=== PATIENT | male | born 1945 | race Caucasian/White ===

== ENCOUNTER 2020-10-11 09:43 | Emergency (ER) | payer OTHER, MEDICARE, SELFPAY ==
[2020-10-11 09:45] VITALS: BP 130/93; PULSE 81; RESP 16; TEMP 36.3; O2SAT 98; BMI 40.1
--- NOTE | 2020-10-11 10:19 | CT_ITS ---
HISTORY: headache. TECHNIQUE: Multiple axial images were obtained of the brain without intravenous contrast. A radiation dose optimization technique was used for this scan. # of images incl. paperwork: 279. COMPARISON: None. FINDINGS: BRAIN PARENCHYMA:Chronic lacunar infarct in the left basal ganglia. Multiple small foci and zones of low attenuation in the cerebral white matter most compatible with chronic small vessel ischemic gliosis. INTRACRANIAL HEMORRHAGE: No acute intracranial hemorrhage. CSF SPACES/MASS EFFECT: Nirav cisterna magna incidentally noted. Diffuse atrophy with compensatory ventricular enlargement. No midline shift or other significant mass effect. ORBITS: Bilateral lens resections. CALVARIUM: Intact. PARANASAL SINUSES AND MASTOID AIR CELLS: Mild sphenoid sinus mucosal thickening. CT/Brain/Head without Contrast IMPRESSION: No acute intracranial process identified. Chronic small vessel ischemic gliosis. Individualized dose optimization techniques were used for this CT. at 1103 Reported and signed by: Danielle Gonzalez MD Electronically Signed: Danielle Gonzalez MD at 11:02 EDT Tel , Service support ,
--- NOTE | 2020-10-11 10:20 | EKG12_ITS ---
Test Reason : DYSRYTHMIA Blood Pressure : / mmHG Vent. Rate : 081 BPM Atrial Rate : 394 BPM P-R Int : 000 ms QRS Dur : 138 ms QT Int : 436 ms P-R-T Axes : 000 -63 019 degrees QTc Int : 506 ms Atrial fibrillation Right bundle branch block Left anterior fascicular block Bifascicular block Abnormal ECG Confirmed by JAEL ESTRADA, OUMAR ([id number]), newspaper editor managing [employer] ([id number]) on 10/13/2020 9:57:45 AM Referred By: TATY Confirmed By:OUMAR ELDER MD
--- NOTE | 2020-10-11 10:23 | CT_ITS ---
HISTORY: Cervical radiculopathy. TECHNIQUE: Helically acquired images were obtained of the cervical spine. 2D reformatted images were reviewed. A radiation dose optimization technique was used for this scan. # of images incl. paperwork: 444. IV Contrast dosage and agent: None. COMPARISON: None. FINDINGS: VERTEBRAE: No acute fracture identified. VERTEBRAL ALIGNMENT: No significant anterior or posterior subluxation. Straightening of the cervical lordosis. DISCS: Degenerative discogenic changes. Posterior disc bulge osteophyte complexes with uncovertebral and facet arthropathy. C2-3: Moderate central canal stenosis. C3-4: Severe central canal stenosis. C4-5, C5-6: Mild narrowing of the thecal sac. Foraminal narrowing at multiple levels. SOFT TISSUES: No prevertebral soft tissue swelling. Mild dependent atelectasis in the right lung. CT/Spine Cervical without Contras IMPRESSION: No evidence of acute cervical spinal fracture or dislocation. Multilevel degenerative disc disease as described above. Individualized dose optimization techniques were used for this CT. at 1130 Reported and signed by: Danielle Gonzalez MD Electronically Signed: Danielle Gonzalez MD at 11:29 EDT Tel , Service support ,
--- NOTE | 2020-10-11 10:28 | EX.ED.DYSGE1 ---
HPI History of Present Illness Chief Complaint: Dizziness Informant: patient Onset/Context/Timing Onset: Yesterday Context: Gradual Onset Timing: Waxes and wanes Quality: Off balance Location: Generalized Worsened by: Movement, standing Relieved by: Nothing Narrative Narrative: Patient presents with dizziness that began yesterday. Patient states he feels off balance. Patient states is worse with certain movements and with standing. Patient states it is intermittent. Patient also admits to some intermittent numbness and tingling down his left arm that he has had for 2 to 3 months. Patient states he was told that it was a pinched nerve but never had any evaluation for it. Patient admits to some nausea but denies any vomiting. Patient also admits to mild sore throat. Patient denies any headaches. Patient denies any visual changes. Patient denies any hearing changes. Patient denies any tinnitus. [facility] Medical History (Updated 10/11/20 @ 13:[address] Kali Pimentel DO) Diabetes Neuropathy Allergy/AdvReac Type Severity Reaction Status Date / Time oxybutynin Allergy Other Verified 10/11/20 10:27 Sulfa (Sulfonamide Allergy Other Verified 10/11/20 10:27 Antibiotics) Surgical History History of herniorrhaphy Social History Smoking Status: Former smoker ROS ROS ED Constitutional Constitutional ED: Denies chills or fever(s) Eyes Eyes: Denies blurry vision or change in vision ENT ENT ED: Reports sore throat; Denies rhinorrhea Cardiovascular Cardiovascular: Denies chest pain or palpitations Respiratory/Chest Respiratory/Chest: Denies cough or dyspnea Gastrointestinal Gastrointestinal: Reports nausea; Denies vomiting Genitourinary Genitourinary ED: Denies dysuria or hematuria Musculoskeletal Musculoskeletal: Reports neck pain; Denies back pain Integumentary Denies abscess or rash Neurologic Neurologic: Reports paresthesias LUE; Denies headache(s) or weakness Allergic/Immunologic Allergic/Immunologic ED: Denies mouth swelling or urticaria EXAM Physical Exam Const Vital Signs: 10/11/20 09:45 10/11/20 10:33 10/11/20 11:55 Temperature 97.4 F L Temperature Source Temporal Pulse Rate 81 Pulse Rate [Lying] 77 Pulse Rate [Sitting] 76 Pulse Rate [Standing] 88 Respiratory Rate 16 Respiratory Effort Normal Non-Labored Respiratory Pattern Normal Blood Pressure 130/93 H Blood Pressure [Lying] 117/69 Blood Pressure [Sitting] 117/78 Blood Pressure [Standing] 118/90 H Blood Pressure Mean 105 Blood Pressure Mean [Lying] 85 Blood Pressure Mean [Sitting] 91 Blood Pressure Mean [Standing] 99 Pulse Ox 98 Oxygen Delivery Method Room Air 10/11/20 12:00 Temperature Temperature Source Pulse Rate 81 Pulse Rate [Lying] Pulse Rate [Sitting] Pulse Rate [Standing] Respiratory Rate 18 Respiratory Effort Respiratory Pattern Blood Pressure 118/90 H Blood Pressure [Lying] Blood Pressure [Sitting] Blood Pressure [Standing] Blood Pressure Mean 99 Blood Pressure Mean [Lying] Blood Pressure Mean [Sitting] Blood Pressure Mean [Standing] Pulse Ox 96 Oxygen Delivery Method Room Air Positive well nourished and well developed General Appearance ED: well developed HEENT Reports moist mucous membranes Neck supple and no JVD Resp normal respiratory effort and clear to auscultation bilaterally Cardio regular rate and no murmurs Rhythm: abnormal rhythm irregularly irregular GI normal to inspection, nondistended, normoactive bowel sounds and non-tender Palpation: soft Extremity normal to inspection General Extremety ED: Negative for edema or tenderness General Extremity: Negative for edema Neuro oriented x3, CN's II-XII intact bilaterally and no sensory deficits noted Sensorium / Orientation: alert Psych mental status grossly normal Skin no rashes or lesions noted MDM MDM MDM Narrative Medical decision making narrative: EKG was obtained. On my interpretation, there is atrial fibrillation with a rate of 81. There is a right bundle branch block. There is a left anterior fascicular block. There are no prior EKGs available for comparison. CBC shows a mild anemia with a hemoglobin of 12.7 and hematocrit 39.5. Comprehensive metabolic profile showed glucose of 187 but was otherwise within normal limits. High-sensitivity troponin was 11.9. Repeat troponin 2 hours later was 12.1. Portable chest x-ray was obtained. There is 1 view. On my interpretation, there is mild vascular congestion. There is bibasilar atelectasis. There is no cardiomegaly. Bony thorax is normal. There is no acute process. Radiologist also interpreted the x-ray and agrees. CT scan of the brain was obtained. There are chronic changes. There is no acute bleed or infarct. This was interpreted by the radiologist and reviewed by myself. CT scan of the cervical spine was obtained. There is degenerative disc disease noted. There is no acute process noted. This was interpreted by the radiologist and reviewed by myself.Orthostatic vital signs were obtained were within normal limits. Orthostatic vital signs were obtained and were within normal limits. Patient feels better and wants to go home. Patient was given a dose of meclizine here. Patient was given a prescription for meclizine. Patient was instructed to follow-up with his primary care physician in 5 to 7 days. Patient understood and was agreeable with the plan. All questions were answered. Lab Data Attestation: I reviewed the patient's lab results. Labs: Laboratory Results - last 24 hr 10/11/20 10/11/20 10/11/20 10:35 10:35 10:35 WBC 7.2 RBC 4.21 L Hgb 12.7 L Hct 39.5 L MCV 93.8 MCH 30.2 MCHC 32.2 RDW Std Deviation 48.2 H RDW Coeff of Ramez 14.2 Plt Count 110 L MPV 10.5 Immature Gran % (Auto) 0.600 Neut % (Auto) 75.0 H Lymph % (Auto) 16.9 L Calhoun % (Auto) 5.0 Eos % (Auto) 1.9 Baso % (Auto) 0.6 Absolute Neuts (auto) 5.4 Absolute Lymphs (auto) 1.22 Nucleated RBC % 0 Sodium 139 Potassium 4.4 Chloride 105 Carbon Dioxide 31.0 Anion Gap 3 L BUN 12 Creatinine 0.90 Estim Creat Clear Calc 87.07 Est GFR (MDRD) Af Amer 106 Est GFR (MDRD) Non-Af 87 BUN/Creatinine Ratio 13.3 Glucose 187 H Calcium 8.6 Total Bilirubin 0.60 AST 18 ALT 30 Alkaline Phosphatase 60 Troponin I High Sens 11.9 B-Natriuretic Peptide 138.3 H Total Protein 6.4 Albumin 3.4 Globulin 3.0 Albumin/Globulin Ratio 1.1 10/11/20 12:33 WBC RBC Hgb Hct MCV MCH MCHC RDW Std Deviation RDW Coeff of Ramez Plt Count MPV Immature Gran % (Auto) Neut % (Auto) Lymph % (Auto) Calhoun % (Auto) Eos % (Auto) Baso % (Auto) Absolute Neuts (auto) Absolute Lymphs (auto) Nucleated RBC % Sodium Potassium Chloride Carbon Dioxide Anion Gap BUN Creatinine Estim Creat Clear Calc Est GFR (MDRD) Af Amer Est GFR (MDRD) Non-Af BUN/Creatinine Ratio Glucose Calcium Total Bilirubin AST ALT Alkaline Phosphatase Troponin I High Sens 12.1 B-Natriuretic Peptide Total Protein Albumin Globulin Albumin/Globulin Ratio Radiography Chest X-Ray - ED: 1 View, Read by ED Physician, Read by Radiologist and No Acute Disease Diagnostic Testing: Radiology Impression Brain CT 10/11/20 10:19 IMPRESSION: No acute intracranial process identified. Chronic small vessel ischemic gliosis. Individualized dose optimization techniques were used for this CT. at 1103 Reported and signed by: Danielle Gonzalez MD Electronically Signed: Danielle Gonzalez MD at 11:02 EDT Tel , Service support , Cervical Spine CT 10/11/20 10:23 IMPRESSION: No evidence of acute cervical spinal fracture or dislocation. Multilevel degenerative disc disease as described above. Individualized dose optimization techniques were used for this CT. at 1130 Reported and signed by: Danielle Gonzalez MD Electronically Signed: Danielle Gonzalez MD at 11:29 EDT Tel , Service support , Chest X-Ray 10/11/20 10:46 IMPRESSION: Mild pulmonary vascular congestion and bibasilar atelectasis. at 1104 Reported and signed by: Danielle Gonzalez MD Electronically Signed: Danielle Gonzalez MD at 11:03 EDT Tel , Service support , EKG Initial EKG: Attestation: I personally reviewed and interpreted this EKG as follows: Interpretation: No Acute Injury Pattern, Atrial Fibrillation, RBBB and LAFB Prior EKG tracings: not available for review Discharge Plan Triage Chief Complaint: Dizziness ED Provider: Kali Pimentel Dx/Rx/DC Orders Clinical Impression: Vertigo Instructions: ED Vertigo, Unspecified [facility] [facility] [facility] [Primary Care Provider] - 3-5 Days Disposition Disposition: Home, Self Care
--- NOTE | 2020-10-11 10:46 | RAD_ITS ---
HISTORY: Chest pain. TECHNIQUE: XR Chest 1 View. # of images incl. paperwork: 1. COMPARISON: None. FINDINGS: CARDIOMEDIASTINAL STRUCTURES: Cardiac silhouette mildly enlarged. Tortuous aorta. LUNGS: Mild pulmonary vascular congestion and mild linear bibasilar opacities. PLEURA: No pleural effusion or pneumothorax. OSSEOUS STRUCTURES: Degenerative change. RAD/Chest 1 View (Portable) IMPRESSION: Mild pulmonary vascular congestion and bibasilar atelectasis. at 1104 Reported and signed by: Danielle Gonzalez MD Electronically Signed: Danielle Gonzalez MD at 11:03 EDT Tel , Service support ,
[2020-10-11 10:47] LABS: Absolute Lymphocyte Count 1.22 X10^3/uL (0.83-4.51); Absolute Neutrophil Count 5.4 X10^3/uL (2.0-7.7); Basophil# 0.04 X10^3/uL; Basophil% 0.6 % (0-1); Eosinophil# 0.14 X10^3/uL; Eosinophils% 1.9 % (0-5); Hematocrit 39.5 % (40-54); Hemoglobin 12.7 g/dL (13.0-16.5); Lymphocyte # 1.22 X10^3/ul (0.83-4.51); Lymphocyte % 16.9 % (19-41); Mean Corp Hgb Conc 32.2 g/dL (32-36); Mean Corpuscular Hgb 30.2 pg (27.0-32.0); Mean Corpuscular Volume 93.8 fL (80-94); Mean Platelet Vol. 10.5 fl (6.2-12.0); Monocyte# 0.36 X10^3/uL; NRBC Flagged by Analyzer 0 % (0-5); Neutrophil # 5.44 X10^3/uL (2.7-7.7); Platelet Count 110 K/mm3 (150-450); RBC Distribution Width CV 14.2 % (11.6-14.6); RBC Distribution Width SD 48.2 fl (35.1-43.9); Red Blood Count 4.21 M/mm3 (4.6-6.2); White Blood Count 7.2 K/mm3 (4.4-11.0)
[2020-10-11 11:01] LABS: ALB/GLOB Ratio 1.1 RATIO (0.9-2.4); AST(SGOT) 18 U/L (15-37); Alanine Aminotransfer ALT/SGPT 30 U/L (16-61); Albumin, Serum 3.4 g/dL (3.2-5.0); Alkaline Phosphatase 60 U/L (45-117); Anion Gap 3 (5-15); BUN 12 mg/dL (7-18); BUN/Creat Ratio 13.3 RATIO (10-20); Calcium,Total 8.6 mg/dL (8.5-10.1); Chloride 105 mmol/L (98-107); EST Glomerular Filtration Rate 87 mL/min (>60); Est Glom Filt Rate - Afr Amer 106 mL/min (>60); Estimated Creatinine Clearance 87.07 ml/min; Glucose 187 mg/dL (74-106); Potassium 4.4 mmol/L (3.5-5.1); Protein, Total 6.4 g/dL (6.4-8.2); Sodium Level 139 mmol/L (136-145); Troponin-I HS 11.9 pg/mL (3.0-78.5)
[2020-10-11 11:55] VITALS: BP 117/69; BP 117/78; BP 118/90; PULSE 76; PULSE 77; PULSE 88
[2020-10-11 12:00] VITALS: BP 118/90; PULSE 81; RESP 18; O2SAT 96
[2020-10-11 12:23] LABS: BNP,B-Type NATRIURETIC PEPTIDE 138.3 pg/mL (0-100)
[2020-10-11 13:09] LABS: Troponin-I HS 12.1 pg/mL (3.0-78.5)
[2020-10-11] MEDS: Meclizine HCl 25 MG Tablet PO (13:53)
[2020-10-11 14:13] VITALS: BP 116/73; PULSE 65; RESP 22; O2SAT 95
== END 2020-10-11 14:15 | disposition home or self-care (01) ==
PROVIDERS: Emergency Provider Emergency Medicine
DX: R42 Dizziness and giddiness (principal); M50.30 Other cervical disc degeneration, unspecified cervical region; I48.91 Unspecified atrial fibrillation; E11.40 Type 2 diabetes mellitus with diabetic neuropathy, unspecified; J02.9 Acute pharyngitis, unspecified; R11.0 Nausea; Z87.891 Personal history of nicotine dependence
CPT/HCPCS: 70450; 71045; 72125; 80053; 83880; 84484; 85025; 93005; 99285; A4216

== ENCOUNTER 2021-12-27 09:30 | Outpatient (RCR) | payer OTHER, MEDICARE, SELFPAY ==
--- NOTE | 2021-10-31 13:12 | HP.PTEVAL ---
Patient's Visit Information BHARAT HARRNIGTON is a 76 year old M referred to Physical Therapy by NICOLAS DANIEL with a diagnosis of DM/Obese. Date of Evaluation: 10/31/21 Physical Therapist: JOLLY Gomez - Visit Plan Frequency: 1-2x /Week Duration: 6 Weeks Plan: 1-2X week for 14 additional visits for AT for gait endurance, LE strength, posture, balance with HEP - Subjective Dr wanted cardiac rehab but he feels that he can not do it so they want to try to increase endurance in AT and then possible cardiac rehab due to L heart valve replacement approx [address] that he can not walk that much and so AT it is. Pt uses a scooter all the time even in the house but he does try and walk some. He has diabetic neuropathy of the R leg also. He started using the scooter in 2002. He reports that he can go down steps with 2 rails. Pt has DM neuropathy and back issues and got into [employer] in [employer] and that caused the DM. That put him in the motorized chair. If he walks he feels exhausted when he walks (furniture walks). and he has wall chair rails to walk around the house. He does have a cane, walker, and scooter also. He has a ramp to get up into the house. - Pain back pain Pain Intensity (Out of 10): 0 R leg pain Pain Intensity (Out of 10): 6 - Objective Uses a motorized scooter most of the time. Gait: Walks with a hand on the hallway chair rail and WBQC with CGA 80 feet down the horner and back to his chair. LE MMT: R hip flex 7.7 and L hip flex 9.2#. R knee ext 14.3# and L knee ext 15.8#. R knee flex 11.1# and L knee flex 15.1#. Sit to stand: uses his arms to help get him out of the chair. Goes from scooter to mat table with flexed trunk and uses arms on mat table to get himself to the mat table. Pt was instructed and shown how to tell the front end manager that he is here and go back to the pool/locker room for treatment - Balance/Special Test Scores Lower Extremity Functional Score: 36 - Goals Goal 1:: I HEP Goal Time Frame: 6-8 Weeks Goal 2:: Be able to walk 100 feet with least restrictive device without legs giving out or fatugue Goal Time Frame: 6-8 Weeks Goal 3:: Increase B LE strength (at the time of the eval: LE MMT: R hip flex 7.7 and L hip flex 9.2#. R knee ext 14.3# and L knee ext 15.8#. R knee flex 11.1# and L knee flex 15.1#). Goal Time Frame: 6-8 Weeks Goal 4:: Pt to subjectivly reports that he is able to walk around his house more with more endurance and strength Goal Time Frame: 6-8 Weeks - Rehabilitation Potential Rehabilitation Potential: Good - Anticipated Interventions Patient/Client Instruction: Educate patient on: Condition, Plan of Care For the Purpose of:: To improve muscle performance and motor function, To improve ability to perform ADL's, To increase tolerance to activity/condition/position, To improve performance and independence with ADL's, To decrease level of supervision to perform tasks, To improve ability of physical actions for home/community/work/leisure, To improve gait and locomotor functions, To improve health of tissue, To decrease soft tissue restriction, To increase flexibility/ROM, To improve endurance, To improve balance, To improve safety with gait Therapeutic Exercise to Include: Strength training, Endurance training, Balance training, Postural training, Flexibilty training, Gait and locomotor training For the Purpose of:: To improve ability to perform ADL's, To increase tolerance to activity/condition/position, To improve performance and independence with ADL's, To decrease level of supervision to perform tasks, To improve ability of physical actions for home/community/work/leisure, To improve gait and locomotor functions, To improve health of tissue, To decrease soft tissue restriction, To improve endurance, To improve balance, To improve safety with gait Functional Training to Include: Gait training For the Purpose of:: To improve gait and locomotor functions, To improve safety with gait Thank you for the opportunity to evaluate your patient. For Medicare and Medicare HMO plans, please review the plan of care and approve it. It will need to be FAXED BACK to us at [phone] for Medicare purposes. For Medicare only, by signing this I certify the plan of care. Please let me know if there are questions or concerns regarding this plan of care. Physician Signature: Date:
--- NOTE | 2021-12-12 09:29 | HP.PTREVAL ---
NICOLAS DANIEL, It has been my pleasure to treat BHARAT HARRINGTON over the last 11 visits for DM/Obese. Please see the progress note below for an update on the physical therapy plan of care! Subjective: Pt reports that the pool is great. He reports that his back pain comes and goes. Pt reports that his R leg pain is down to his toes and his pain varies. Pt can say that he is stronger. He reports that the pain is variable. He is able to walk more. Dr wanted him to walk in AT. Pt normally walks around the house with no AD and uses the furniture and if goes outside he takes the cane. He has a ramp at home. Objective/Function: Pt likes the water and needs his scooter per his subjective when he gets out of the water as he is fatigued. Pt is vague with his answers as far as improvement and he reports that his endurance and strength varies. LE MMT: R hip flex 14# and L hip flex 14.4#. R knee ext 11.8# and L knee ext 15.8#. R knee flex 12.7# and L knee flex 15.1#). Gait: walks in dept 148 feet with R leg giving out twice with single point cane and then needed to sit down. Plan Plan: 1-2X week for 14 additional visits for AT for gait endurance, LE strength, posture, balance with HEP Balance/Gait/Functional tests - Balance/Special Test Scores Lower Extremity Functional Score: 35 Goals Goal 1:: I HEP Goal Time Frame: 6-8 Weeks Goal Progress: Progressing Goal 2:: Be able to walk 100 feet with least restrictive device without legs giving out or fatigue Goal Time Frame: 6-8 Weeks Goal Progress: Progressing Goal 3:: Increase B LE strength (at the time of the eval: LE MMT: R hip flex 7.7 and L hip flex 9.2#. R knee ext 14.3# and L knee ext 15.8#. R knee flex 11.1# and L knee flex 15.1#). Goal Time Frame: 6-8 Weeks Goal Progress: Progressing Goal 4:: Pt to subjectivly reports that he is able to walk around his house more with more endurance and strength Goal Time Frame: 6-8 Weeks Goal Progress: Progressing Anticipated Interventions Patient/Client Instruction: Educate patient on: Condition, Plan of Care For the Purpose of:: To improve muscle performance and motor function, To improve ability to perform ADL's, To increase tolerance to activity/condition/position, To improve performance and independence with ADL's, To decrease level of supervision to perform tasks, To improve ability of physical actions for home/community/work/leisure, To improve gait and locomotor functions, To improve health of tissue, To decrease soft tissue restriction, To increase flexibility/ROM, To improve endurance, To improve balance, To improve safety with gait Therapeutic Exercise to Include: Strength training, Endurance training, Balance training, Postural training, Flexibilty training, Gait and locomotor training For the Purpose of:: To improve ability to perform ADL's, To increase tolerance to activity/condition/position, To improve performance and independence with ADL's, To decrease level of supervision to perform tasks, To improve ability of physical actions for home/community/work/leisure, To improve gait and locomotor functions, To improve health of tissue, To decrease soft tissue restriction, To improve endurance, To improve balance, To improve safety with gait Functional Training to Include: Gait training For the Purpose of:: To improve gait and locomotor functions, To improve safety with gait Please do not hesitate to contact me at [phone] by phone or if you have questions or concerns regarding this new plan of care! Sincerely, JOLLY Gomez
--- NOTE | 2021-12-27 10:12 | HP.PTDCSUM_ITS ---
It has been my pleasure to treat BHARAT HARRINGTON referred by NICOLAS DANIEL, with the diagnosis of DM/Obese for a total of 15 visit(s). Discharge Date: 12/27/21 Please see the following information for a summary of their discharge status. Subjective: Pt feels that water therapy has made him 50% better. he reports that he still can not walk well or bend over. He reports that he wants to join through [employer] and come in and do water exercises on his own. back pain Pain Intensity (Out of 10): 3 R leg pain Pain Intensity (Out of 10): 7 % Improvement: 50 Objective/Function: pt plans on joining the gym to do the pool indep once done w/ PT. educated on pool gym hours and the equipment pt can use for his ex program. pt is indep w/ the pool ex program. Goal 1:: I HEP Goal Progress: Progressing Goal 2:: Be able to walk 100 feet with least restrictive device without legs giving out or fatigue Goal Progress: Progressing Goal 3:: Increase B LE strength (at the time of the eval: LE MMT: R hip flex 7.7 and L hip flex 9.2#. R knee ext 14.3# and L knee ext 15.8#. R knee flex 11.1# and L knee flex 15.1#). Goal Progress: Progressing Goal 4:: Pt to subjectivly reports that he is able to walk around his house more with more endurance and strength Goal Progress: Progressing Plan: DC PT to I AT program probably through [employer] Discharge Comments: DC PT to I water program probably through [employer] If there are questions or concerns regarding this patient's physical therapy, please feel free to call me at [phone]. Thank you for the referral of this patient. Sincerely, Shonna Fischer, MPT Balance/Gait/Functional tests - Balance/Special Test Scores Lower Extremity Functional Score: 35
== END 2021-12-27 12:48 | disposition home or self-care (01) ==
LOC: PT 09:30
DX: I35.0 Nonrheumatic aortic (valve) stenosis (principal)
CPT/HCPCS: 97110; 97113; 97162

== ENCOUNTER 2024-04-30 02:59 | Emergency (ER) | payer OTHER, SELFPAY ==
[2024-04-30] VITALS (17 sets, daily range): BP systolic 89–112; BP diastolic 68–81; PULSE 80–117; RESP 16–30; TEMP 36.4–36.6; O2SAT 94–96; BMI 38.7
--- NOTE | 2024-04-30 03:02 | EKG12_ITS ---
Test Reason : CP Blood Pressure : */* mmHG Vent. Rate : 110 BPM Atrial Rate : * BPM P-R Int : * ms QRS Dur : 140 ms QT Int : 348 ms P-R-T Axes : * -78 43 degrees QTcB Int : 470 ms Atrial fibrillation with rapid ventricular response Right bundle branch block Left anterior fascicular block Bifascicular block Abnormal ECG Confirmed by KEYA ESTRADA, MANOLO ([id number]), newspaper editor managing [employer] ([id number]) on 05/04/2024 8:03:17 AM Referred By: MEENA Confirmed By: MANOLO LAURA MD
--- NOTE | 2024-04-30 03:13 | ED.VIS.CHEST ---
HPI History of Present Illness Chief Complaint: Chest Pain Informant: patient and spouse/S.O. Onset/Context/Timing Onset: Days Activity at onset: gradual Timing: Intermittent Quality: Positive for Pain Location: - (Lower sternal chest pain. No radiation.) Current Severity: Gone Maximum Severity: Mild Worsened By: - (Lying supine. Not exertional. No shortness of breath.) Relieved By: Nothing Associated Symptoms: Negative for Nausea, Vomiting, Diaphoresis, Dyspnea, Cough, Fever, Lightheadedness, Acid Reflux or Palpitations Narrative Narrative: 78-year-old male history of diabetes prior cardiac valve surgery and A-fib on Eliquis. States last couple days he has had lower sternal chest discomfort. Not associated with exertion. No associated shortness of breath nor nausea nor diaphoresis. Tonight it occurred around 2 AM. Currently is pain-free. He said it appears to be worse when he lays supine or tries to get comfortable to sleep. He denies any leg pain or swelling. No hemoptysis. No history of DVT or PE. Denies any coronary artery disease or stents. Denies any recent exertional chest pain or exertional dyspnea. Prior Similar Symptoms: No Recent Illness/Hospitalization: No CVD Risk Factors: Positive for Diabetes PE Risk Factors: Negative for Recent Travel/Surgery, Recent Immobilization, Prior DVT or PE, Cancer or OCP + Smoking + >/=35 TAD Risk Factors: Negative for Marfan's Syndrome [facility] Medical History Neuropathy Diabetes Home Medications ?Medication ?Instructions ?Recorded ?Last Taken ?Type potassium chloride 20 mEq 20 meq PO BID 7 days #14 tabs 04/30/24 Unknown Rx tablet,extended release(part/cryst) Allergy/AdvReac Type Severity Reaction Status Date / Time oxybutynin Allergy Other Verified 04/30/24 03:12 Sulfa (Sulfonamide Allergy Other Verified 04/30/24 03:12 Antibiotics) Surgical History History of heart valve replacement History of herniorrhaphy Social History household members: spouse Smoking Status: Former smoker alcohol intake: never ROS ROS ED ROS Narrative Nonexertional chest pain lower sternum that does not migrate. Constitutional Constitutional ED: Denies chills or fever(s) Eyes Eyes: Reports none ENT ENT ED: Denies ear pain Cardiovascular Cardiovascular: Reports as per HPI and chest pain Respiratory/Chest Respiratory/Chest: Denies cough, dyspnea or dyspnea on exertion Gastrointestinal Gastrointestinal: Denies abdominal pain, diarrhea, melena, nausea or vomiting Genitourinary Genitourinary ED: Denies dysuria or hematuria Musculoskeletal Musculoskeletal: Denies arthralgias Integumentary Denies abscess Neurologic Neurologic: Denies headache(s) Psychiatric Psychiatric: Denies anxiety Endocrine Endocrinology: Denies cold intolerance Hematologic/Lymphatic Hematologic/Lymphatic: Denies lymphadenopathy Allergic/Immunologic Allergic/Immunologic ED: Denies mouth swelling, tongue swelling or urticaria EXAM Physical Exam Narrative Exam Narrative: Well-appearing 78-year-old male. Brought in by squad. Sitting upright in bed. No distress. A-fib on the monitor rate around 115. H EENT exam pupils are round reactive light. No facial droop. Neck nontender no JVD. Lungs clear to auscultation bilaterally. Heart A-fib with rapid ventricular rate around 115. No appreciable murmur. Chest wall is nontender. The chest wall appears normal. There is no rash or bruising. There is no reproducible pain or crepitance. Ribs are nontender. Abdomen soft nontender. There is no epigastric pain. No peritoneal signs. He is moving all 4 extremities. There are nontender no edema. Neurologically he is awake and alert. Answering questions following commands. Moving all 4 extremities. present at bedside. Const Vital Signs: 04/30/24 03:00 04/30/24 03:10 04/30/24 03:11 Temperature 97.6 F L Temperature Source Oral Pulse Rate 117 H 108 H Respiratory Rate 16 20 H Blood Pressure 111/77 Blood Pressure Mean 88 Pulse Ox 95 Oxygen Delivery Method Room Air Room Air 04/30/24 03:15 04/30/24 03:30 04/30/24 03:45 Temperature Temperature Source Pulse Rate 116 H 101 H Respiratory Rate 30 H 25 H Blood Pressure 94/71 89/76 L 109/81 H Blood Pressure Mean 76 82 88 Pulse Ox Oxygen Delivery Method 04/30/24 04:00 04/30/24 04:15 04/30/24 04:30 Temperature Temperature Source Pulse Rate 98 107 H Respiratory Rate 26 H 22 H Blood Pressure 97/77 112/77 96/68 Blood Pressure Mean 85 88 78 Pulse Ox Oxygen Delivery Method 04/30/24 04:43 04/30/24 04:45 04/30/24 04:48 Temperature Temperature Source Pulse Rate 99 96 101 H Respiratory Rate 24 H 18 24 H Blood Pressure 96/76 96/76 Blood Pressure Mean 84 82 Pulse Ox 94 Oxygen Delivery Method Room Air 04/30/24 05:00 04/30/24 05:15 04/30/24 05:30 Temperature Temperature Source Pulse Rate 102 H 97 94 Respiratory Rate 25 H 25 H 26 H Blood Pressure 101/75 104/74 Blood Pressure Mean 84 84 Pulse Ox Oxygen Delivery Method 04/30/24 05:45 04/30/24 06:00 Temperature Temperature Source Pulse Rate 91 80 Respiratory Rate 24 H 24 H Blood Pressure 109/71 Blood Pressure Mean 84 Pulse Ox Oxygen Delivery Method Positive well nourished and well developed; Negative for cachectic, contractures or unkempt General Appearance ED: well developed and NAD; Negative for unkempt, cachectic, contractures or pallor Nutritional Appearance: Negative for cachectic HEENT Reports moist mucous membranes normocephalic and atraumatic Eyes PERRL and EOMs intact bilaterally Neck no lymphadenopathy, supple and no JVD General: Negative for tenderness Chest Wall inspection of chest normal and palpation of chest normal Chest: Negative for tenderness Resp normal respiratory effort and clear to auscultation bilaterally Cardio Rate: tachycardic Rhythm: abnormal rhythm irregularly irregular and other (A-fib rate about 115.) Peripheral Pulses: pulses 2+ throughout GI normal to inspection, nondistended, normoactive bowel sounds, soft to palpation, non-tender, non-distended and no masses Back/Spine no CVA tenderness and no thoracic nor lumbar tenderness Extremity normal to inspection General Extremety ED: Negative for edema or pulses abnormal General Extremity: Negative for edema or pulses abnormal Neuro oriented x3 and CN's II-XII intact bilaterally Sensorium / Orientation: awake, alert, oriented to person, oriented to place and oriented to time; Negative for confused or lethargic Motor Exam: strength 5/5 throughout Psych mental status grossly normal Appearance: Negative for unkempt Attitude: No agitated Mood & Affect: Negative for depressed, anxious or tearful Skin no rashes or lesions noted and no wounds General Skin Exam: Negative for jaundice or pallor Rashes: No rashes noted Trauma: Negative for abrasion or laceration Heart Score History: Slightly/Non-Suspicious ECG: Normal (A-fib.) Age: >/= 65 years Risk Factors: 1 or 2 Risk Factors Troponin: </= Normal Limit Score: 3 MDM MDM MDM Narrative Medical decision making narrative: 78-year-old male with nonreproducible midsternal nonradiating chest pain. No shortness of breath nor diaphoresis. Nonexertional pain. Undergo cardiac workup. Repeat exam patient doing well at 4:27 AM. He will be given oral potassium for his potassium of 2.8. We are awaiting a 2-hour troponin. He will also be given medication to slow down his A-fib. Repeat exam patient is doing well around 6 AM. Heart rates in the 90s. His pressures improved to approximately 109/71. Both troponins were normal. This was atypical nonexertional chest pain. Does not appear to be cardiac. He is comfortable being [facility] History & Record Review Discussion w/independent historian: Patient and Family Additional record(s) reviewed:: Prior inpatient record, Prior outpatient record, Prior ED visit and Prior labs Lab Data Attestation: I reviewed the patient's lab results. Lab results narrative: CBC shows a normal white count of 9. H&H 13 and 40. Platelets are low at 90. Previously 110. Chemistries show potassium of 2.8. 11. Normal BUN of 12 creatinine 0.9. Glucose 195. Initial troponin 17. 2-hour troponin is 16. Chest x-ray shows chronic changes no acute process. Labs: Laboratory Results - last 24 hr 04/30/24 04/30/24 02:47 05:08 WBC 9.6 RBC 4.41 L Hgb 13.8 Hct 40.4 MCV 91.6 MCH 31.3 MCHC 34.2 RDW Std Deviation 47.0 H RDW Coeff of Ramez 14.0 Plt Count 90 L MPV 11.1 Immature Gran % (Auto) 0.600 Neut % (Auto) 77.4 H Lymph % (Auto) 12.1 L [place] % (Auto) 8.3 Eos % (Auto) 1.0 Baso % (Auto) 0.6 Absolute Neuts (auto) 7.4 Absolute Lymphs (auto) 1.16 Nucleated RBC % 0 Differential Comment SCANNED Platelet Estimate SLT DEC Sodium 142 Potassium 2.8 L Chloride 103 Carbon Dioxide 29.0 Anion Gap 11 BUN 12 Creatinine 0.97 Estim Creat Clear Calc 89.80 Est GFR (MDRD) Af Amer 96 Est GFR (MDRD) Non-Af 79 BUN/Creatinine Ratio 12.3 Glucose 195 H Calcium 8.6 Troponin I High Sens 17 16 Radiography Chest X-Ray - ED: 1 View, Read by ED Physician, Normal, Heart, Lungs, Mediastinum, Bony Structures, No Acute Disease and Chronic Changes Diagnostic Testing: Clinical Impression(s) from Imaging Studies Chest X-Ray 04/30/24 03:20 IMPRESSION: 1. No acute cardiopulmonary process identified. 2. Chronic changes, as above Reading Location: [facility] Chest x-ray, portable, single view interpreted by myself shows normal cardiac silhouette. Normal mediastinum and aortic knob. Normal lung mckoy. Chronic changes. No acute process. Rhythm Strip Rhythm Strip: A-fib Rate: 110 Ectopy: None EKG Initial EKG: Attestation: I personally reviewed and interpreted this EKG as follows: Interpretation: Atrial Fibrillation Comments: A-fib with RVR rate 110s. Right bundle branch block. Left anterior fascicular block. Discharge Plan Triage Chief Complaint: Chest Pain ED Provider: Bertram Serrano Dx/Rx/DC Orders Clinical Impression: Chest pain, History of diabetes mellitus, History of atrial fibrillation, Chronic anticoagulation, Acute hypokalemia Instructions: Hypokalemia Dc, ED Chest Pain, Uncertain Cause Prescriptions: New potassium chloride 20 mEq tablet,ER particles/crystals 20 meq PO BID 7 Days Qty: 14 0RF [facility]errals: [facility] [Primary Care Provider] - 3-5 Days Activity Restrictions/Additional Instructions: Continue your regular medications. Your potassium was low. I wrote you for Odilia take 1 pill twice a day for the next week that should bring up your potassium. Follow-up with your [place] doctor. Return if feeling worse. Print Language: Uzbek Disposition Disposition: Home, Self Care
[2024-04-30] MEDS: Aspirin 81 MG TAB.CHEW 324 MG PO (03:15)
--- NOTE | 2024-04-30 03:20 | RAD_ITS ---
PROCEDURE: CHEST 1 VIEW (PORTABLE) REASON FOR EXAM: Chest pain. TECHNIQUE: AP portable view of the chest. COMPARISON: 10/11/2020 FINDINGS: Lungs are well aerated. Minimal atelectasis and/or scarring within the lung bases. No focal airspace consolidation, pneumothorax or pleural effusion is seen. Remaining lung markings otherwise appears clear. Heart size is within normal limits. Tortuosity involving the thoracic aorta. Osseous thorax appears intact. Spondylotic change involving the thoracic spine. EKG wires overlie the chest. RAD/Chest 1 View (Portable) IMPRESSION: 1. No acute cardiopulmonary process identified. 2. Chronic changes, as above Reading Location: [facility]
[2024-04-30 03:24] LABS: Absolute Lymphocyte Count 1.16 X10^3/uL (0.83-4.51); Absolute Neutrophil Count 7.4 X10^3/uL (2.0-7.7); Basophil# 0.06 X10^3/uL; Basophil% 0.6 % (0-1); Hematocrit 40.4 % (40-54); Hemoglobin 13.8 g/dL (13.0-16.5); Lymphocyte # 1.16 X10^3/ul (0.83-4.51); Lymphocyte % 12.1 % (19-41); Mean Corp Hgb Conc 34.2 g/dL (32-36); Mean Corpuscular Hgb 31.3 pg (27.0-32.0); Mean Corpuscular Volume 91.6 fL (80-94); Mean Platelet Vol. 11.1 fl (6.2-12.0); Monocyte# 0.79 X10^3/uL; Monocyte% 8.3 % (0-10); NRBC Flagged by Analyzer 0 % (0-5); Neutrophil # 7.39 X10^3/uL (2.7-7.7); Neutrophil % 77.4 % (47-70); POSITIVE COUNT YES; Platelet Count 90 K/mm3 (150-450); Red Blood Count 4.41 M/mm3 (4.6-6.2); White Blood Count 9.6 K/mm3 (4.4-11.0)
[2024-04-30 03:29] LABS: Differential Indicated SCAN CRITERIA MET
[2024-04-30 04:03] LABS: Anion Gap 11 (5-15); BUN 12 mg/dL (7-18); BUN/Creat Ratio 12.3 RATIO (10-20); Calcium,Total 8.6 mg/dL (8.5-10.1); Chloride 103 mmol/L (98-107); Creatinine, Serum 0.97 mg/dL (0.70-1.30); EST Glomerular Filtration Rate 79 mL/min (>60); Est Glom Filt Rate - Afr Amer 96 mL/min (>60); Glucose 195 mg/dL (74-106); Potassium 2.8 mmol/L (3.5-5.1); Sodium Level 142 mmol/L (136-145); Troponin-I HS (w/2H Reflex) 17 pg/mL (3.0-78.0)
[2024-04-30] MEDS: dilTIAZem 25 MG/5 ML Vial 20 MG IV BOLUS (04:45)
[2024-04-30] MEDS: Potassium Chloride Oral Tablet 20 MEQ 60 MEQ PO (04:51)
[2024-04-30 04:52] LABS: Differential Comment SCANNED; Platelet Estimate SLT DEC (ADEQ)
[2024-04-30 05:12] LABS: Reflex Troponin-HS? (from REC) Y
[2024-04-30 06:08] LABS: Troponin-I HS 16 pg/mL (3.0-78.0)
== END 2024-04-30 06:22 | disposition home or self-care (01) ==
PROVIDERS: Emergency Provider Emergency Medicine; Visit Provider Emergency Medicine
DX: R07.89 Other chest pain (principal); I48.91 Unspecified atrial fibrillation; E11.40 Type 2 diabetes mellitus with diabetic neuropathy, unspecified; E87.6 Hypokalemia; Z79.01 Long term (current) use of anticoagulants; Z87.891 Personal history of nicotine dependence
CPT/HCPCS: 71045; 80048; 84484; 85025; 93005; 96374; 99285; A4216

== ENCOUNTER 2024-12-02 17:21 | Emergency (ER) | payer OTHER, SELFPAY ==
[2024-12-02] VITALS (19 sets, daily range): BP systolic 109–178; BP diastolic 77–147; PULSE 46–123; RESP 10–100; TEMP 36.6–36.7; O2SAT 16–100; BMI 32.8
--- NOTE | 2024-12-02 17:22 | EKG12_ITS ---
Test Reason : STROKE Blood Pressure : */* mmHG Vent. Rate : 101 BPM Atrial Rate : * BPM P-R Int : * ms QRS Dur : 132 ms QT Int : 396 ms P-R-T Axes : * -72 71 degrees QTcB Int : 513 ms Atrial fibrillation with rapid ventricular response Right bundle branch block Left anterior fascicular block Bifascicular block Abnormal ECG Confirmed by YISEL ESTRADA, DEYA ([id number]), managing editor DEMETRICE SARABIA ([id number]) on 12/04/2024 10:36:07 AM Referred By: JARROD Confirmed By: DEYA MORILLO MD
--- NOTE | 2024-12-02 17:22 | CT_ITS ---
PROCEDURE: STROKE BRAIN/HEAD WITHOUT CONT 12/02/2024 REASON FOR EXAM: NEURO DEFICIT, ACUTE, STROKE SUSPECTED TECHNIQUE: Procedure Code: CTBR.ST Modality: CT Procedure: STROKE BRAIN/HEAD WITHOUT CONT Coronal and Sagittal reconstruction series were provided. One or more dose reduction techniques were used (e.g., Automated exposure control, adjustment of the mA and/or kV according to patient size, use of iterative reconstruction technique. RADIATION DOSE SUMMARY: CTDlvol: 44.99 mGy DLP: 880.47 mGycm COMPARISON: CT head 10/11/2020. FINDINGS: Brain: Low density in the periventricular white matter suggests mild chronic small vessel ischemic changes. 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 No acute territorial vascular infarction. Nirav cisterna magna. No ventriculomegaly. The orbits are unremarkable except for cataract surgery. CSF Spaces: Advanced generalized cerebral atrophy Sinuses/Mastoids: Clear. Bones: No acute bony abnormalities. CT/STROKE Brain/Head without Cont IMPRESSION: No acute intracranial abnormalities. Reading Location: [id number]
--- NOTE | 2024-12-02 17:29 | CT_ITS ---
PROCEDURE: STROKE CTA HEAD AND NECK W/CON 12/02/2024 REASON FOR EXAM: NEURO DEFICIT, ACUTE, STROKE SUSPECTED TECHNIQUE: Procedure Code: CTCTA.ST.HN Modality: CT Procedure: STROKE CTA HEAD AND NECK W/CON Multiplanar Sagittal and Coronal images were obtained. 3D post processing was performed. CONTRAST: Isovue 370 VOLUME: 100 mL One or more dose reduction techniques were used (e.g., Automated exposure control, adjustment of the mA and/or kV according to patient size, use of iterative reconstruction technique). RADIATION DOSE SUMMARY: DLP: 857.69 mGycm COMPARISON: None. FINDINGS: CTA HEAD: Patent intracranial arterial vasculature. No large vessel occlusion, significant flow-limiting stenosis, saccular aneurysm, or vascular malformation identified. Dural venous sinuses appear patent. CTA NECK: Conventional aortic arch branching. Bilateral cervical carotid and vertebral arteries are patent. Mild atherosclerotic plaque at the carotid bifurcations with no significant luminal narrowing on either side. No aneurysm or dissection. Diffuse tortuosity of the cervical vessels suggesting chronic hypertension. Dominant left vertebral artery supplies the basilar. Diffusely hypoplastic nondominant right vertebral artery terminates distally at PICA branches. CT/STROKE CTA Head AND Neck W/Con IMPRESSION: Patent intracranial and cervical arterial vasculature. No large vessel occlusion or significant flow-limiting stenosis. Reading Location: [facility]
--- NOTE | 2024-12-02 17:36 | EDS_ITS ---
HPI History of Present Illness Chief Complaint: Stroke Alert Detail of Chief Complaint: Onset 1500, drooling, facial droop, slurred speech, weakness left side Informant: patient, spouse/S.O. and EMS Onset/Context/Timing Onset: Today and Hours Context: Sudden Onset Timing: Continuous Quality and Location: Positive for Right Facial Droop, Left Leg Parasthesia, Left Arm Weakness, Left Leg Weakness, Slurred Speech and Difficulty with Ambulation Onset: 1500 Current Severity: Moderate Maximum Severity: Moderate Worsened by: Not applicable Relieved by: Nothing Associated Symptoms Associated Symptoms: Negative for Headache, Nausea or Vomiting Narrative Narrative: History was limited. Quick exam was performed in the ambulance bay. Patient has deficit on the left upper and lower extremity and facial droop on the right. He has slurred speech. He is in trouble controlling his secretions. Stroke order set was initiated. The NIH scale was completed in the radiology suite. He was noted to have focal seizure started on the left side of his face and then involve the right side of his face. He was significantly less responsive. No other history is available. He is on apixaban. This excludes him being a TNK candidate. Once arrived. She made the comment that yesterday son noted he was not right. Could not give me a specific example. Apparently he was at the grave site of their dogs. She thought he was talking to the dogs because his mouth was moving. He was not very responsive. Prior similar symptoms: No Recent Illness/Hospitalization: No [facility] Medical History Neuropathy Diabetes Home Medications ?Medication ?Instructions ?Recorded ?Last Taken ?Type potassium chloride 20 mEq 20 meq PO BID 7 days #14 tab s 04/30/24 Unknown Rx tablet,extended release(part/cryst) Allergy/AdvReac Type Severity Reaction Status Date / Time oxybutynin Allergy Other Verified 04/30/24 03:12 Sulfa (Sulfonamide Allergy Other Verified 04/30/24 03:12 Antibiotics) Surgical History History of heart valve replacement History of herniorrhaphy Social History household members: spouse Smoking Status: Former smoker alcohol intake: never ROS ROS ED Review of Systems ROS Unobtainable: due to mental status EXAM Physical Exam Const Vital Signs: 12/02/24 17:22 12/02/24 17:46 12/02/24 17:46 Temperature Temperature Source Pulse Rate 103 H 110 H Respiratory Rate 14 Respiratory Pattern Normal Blood Pressure 178/115 H 122/83 H Blood Pressure Mean 136 96 Pulse Ox 100 98 Oxygen Delivery Method Fraction of Inspired Oxygen (FIO2) 100 12/02/24 17:48 12/02/24 17:49 12/02/24 17:51 Temperature Temperature Source Pulse Rate 98 97 104 H Respiratory Rate 28 H 12 10 L Respiratory Pattern Blood Pressure 134/119 H 154/98 H 137/88 H Blood Pressure Mean 124 116 104 Pulse Ox 98 96 98 Oxygen Delivery Method Mechanical Ventilator Mechanical Ventilator Mechanical Ventilator Fraction of Inspired Oxygen (FIO2) 12/02/24 17:56 12/02/24 17:58 12/02/24 18:06 Temperature Temperature Source Pulse Rate 98 104 H 120 H Respiratory Rate 13 12 Respiratory Pattern Blood Pressure 148/100 H 135/100 H 177/123 H Blood Pressure Mean 116 111 141 Pulse Ox 100 100 Oxygen Delivery Method Mechanical Ventilator Fraction of Inspired Oxygen (FIO2) 12/02/24 18:07 12/02/24 18:09 12/02/24 18:10 Temperature Temperature Source Pulse Rate 114 H 46 L Respiratory Rate 14 Respiratory Pattern Blood Pressure 166/130 H 165/122 H Blood Pressure Mean 142 136 Pulse Ox Oxygen Delivery Method Mechanical Ventilator Fraction of Inspired Oxygen (FIO2) 100 12/02/24 18:12 12/02/24 18:14 12/02/24 18:24 Temperature 97.8 F Temperature Source Temporal Pulse Rate 75 102 H 116 H Respiratory Rate 16 Respiratory Pattern Blood Pressure 178/115 H 171/147 H 156/117 H Blood Pressure Mean 136 155 130 Pulse Ox 92 Oxygen Delivery Method Room Air Fraction of Inspired Oxygen (FIO2) 12/02/24 18:26 12/02/24 18:30 12/02/24 18:30 Temperature Temperature Source Pulse Rate 117 H 116 H 123 H Respiratory Rate 16 Respiratory Pattern Normal Blood Pressure 172/121 H 176/121 H Blood Pressure Mean 138 139 Pulse Ox 98 Oxygen Delivery Method Fraction of Inspired Oxygen (FIO2) 50 12/02/24 18:35 12/02/24 18:40 12/02/24 18:48 Temperature Temperature Source Pulse Rate 96 97 Respiratory Rate 100 H Respiratory Pattern Blood Pressure 140/99 H 109/79 119/77 Blood Pressure Mean 112 89 91 Pulse Ox 16 Oxygen Delivery Method Fraction of Inspired Oxygen (FIO2) Positive well nourished and well developed Constitutional Narrative: Slurred speech and drooling General Appearance ED: well developed; Negative for NAD HEENT Reports moist mucous membranes atraumatic Eyes PERRL and EOMs intact bilaterally Eyes Narrative: There is no nystagmus. General Eye ED: Negative for pale conjunctiva or scleral icterus Neck no lymphadenopathy, supple and no JVD Chest Wall inspection of chest normal and palpation of chest normal Resp normal respiratory effort and clear to auscultation bilaterally Cardio no murmurs Rate: regular rate Rhythm: regular rhythm Heart Sounds: S1 normal and S2 normal GI normal to inspection, nondistended, normoactive bowel sounds, soft to palpation, non-tender, non-distended and no masses Auscultation: normoactive bowel sounds Extremity normal to inspection Neuro oriented x3, No CN's II-XII intact bilaterally and No no sensory deficits noted [place] Coma Scale: document GCS findings Spontaneous Obeys Commands Oriented 15 Sensorium / Orientation: Negative for alert Speech: Negative for speech normal Gait (Neuro): Negative for normal gait Motor Exam: Negative for strength 5/5 throughout Psych mental status grossly normal Skin no wounds MDM MDM MDM Narrative Medical decision making narrative: Patient presents with strokelike symptoms. After discussion with this may represent focal status epilepticus with Steve's paralysis. Need to rule out intracranial bleed since he is on apixaban. Initial stroke order set was ordered including CTA. Patient is not a thrombolytic candidate since he is on apixaban. Patient developed a focal seizure was started on the left side and included the right side of his face as well. He was not responsive to verbal stimuli during this motor activity. He was treated with 2 of Ativan. 60 mg/kg of Keppra was ordered. I was told by pharmacy that the maximum dose is 4500 which is approximately 40 mg/kg. Case was discussed with Dr. Livingston's the [facility] neurologist. He agrees CT without contrast revealed no acute process. He also looked at the CTA. CTA revealed no vascular stenosis. I was made aware that [facility] have patients wait in the waiting room and do not have capacity to except patient. I was informed by nursing staff and payroll secretary at 1758 that there is no ground unit available in the near future meaning greater than 2 to 3 hours. In light of this and since we do not have capability of EEG monitoring will fly patient by helicopter to [facility]. Patient is on apixaban for atrial fibrillation. He also has history of coronary disease with 1 stent. does not know what vessel was stented. History & Record Review Discussion w/independent historian: Family and Significant other Additional record(s) reviewed:: Prior outpatient record (Reviewed outpatient office visit orthopedic authored by Zunilda Rodríguez. No other history available through [facility] EMR.), Prior ED visit (Seen for hypokalemia April of this year by Dr. Serrano. Seen for vertigo September 2020.) and Prior labs Lab Data Attestation: I reviewed the patient's lab results. Lab results narrative: CBC reveals mild anemia with normal indices. Coags reveal slight elevation of PTT and PTT at 16.6 and 36.8. CO2 is 19 with a normal anion gap. Glucose is elevated 141. He is diabetic. Labs: Laboratory Results - last 24 hr 12/02/24 17:45 WBC 8.3 RBC 4.02 L Hgb 12.4 L Hct 37.1 L MCV 92.3 MCH 30.8 MCHC 33.4 RDW Std Deviation 49.2 H RDW Coeff of Ramez 14.4 Plt Count 96 L MPV 10.9 Immature Gran % (Auto) 0.700 Neut % (Auto) 72.3 H Lymph % (Auto) 17.4 L Henderson % (Auto) 7.2 Eos % (Auto) 1.8 Baso % (Auto) 0.6 Absolute Neuts (auto) 6.0 Absolute Lymphs (auto) 1.44 Nucleated RBC % 0 PT 16.6 H INR 1.3 APTT 36.8 H Sodium 135 Potassium 4.2 Chloride 102 Carbon Dioxide 19.4 L Anion Gap 14 BUN 20 H Creatinine 1.10 Estim Creat Clear Calc 71.74 Est GFR (MDRD) Non-Af 68 BUN/Creatinine Ratio 18.2 Glucose 141 H Calcium 8.8 Troponin T High Sens 14 ABG Data ABG results: ABG 12/02/24 18:19 Specimen Type ART Sample Site L Radial pH 7.29 L Bicarbonate Actual 22.6 Total CO2 24 Base Excess -4 L O2 Saturation 100 H O2 % 100.0 ABG pCO2 47.4 H ABG pO2 469 H* Harman Test Positive Respiration Rate 14 O2 Delivery Device ET Tube Vent Mode AC Tidal Volume 500.0 POC PEEP 5 Crit Call To/Read Back Yes Radiography Chest X-Ray - ED: Read by ED Physician (Chest x-ray and KUB revealed that the endotracheal tube is in proposition and OG is in proper position. These were independent reviewed interpreted by ms at 1817. There is no evidence of infiltrate) Diagnostic Testing: Clinical Impression(s) from Imaging Studies Brain CT 12/02/24 17:22 IMPRESSION: No acute intracranial abnormalities. Reading Location: [facility] Head/Neck CTA 12/02/24 17:29 IMPRESSION: Patent intracranial and cervical arterial vasculature. No large vessel occlusion or significant flow-limiting stenosis. Reading Location: [facility] Chest X-Ray 12/02/24 18:13 IMPRESSION: The NG tube terminates in the distal esophagus and it may be advanced. The ET tube terminates 3 cm above the lee. Perihilar airspace opacities may represent pulmonary edema. Reading Location: [facility] EKG Initial EKG: Attestation: I personally reviewed and interpreted this EKG as follows: Interpretation: Atrial Fibrillation (Rate is 101. QRS duration 132 ms. QRS has morphology of a right bundle branch block and left anterior fascicular block. QT duration is 396 ms.) Management Discussion w/another healthcare provider: Floor Person (Dr. Livingston's the [facility] stroke neurologist), Pharmacist (Regarding Keppra dose.) and Other (Care was transferred to the med flight team at 1900. They were given report.) Treatment and Re-Evaluation Narrative: Spoke at length with and reason for transfer and transfer to [facility] Procedures Intubations Intubation Method: orotracheal Intubation Verification: Positive color change Intubation Complications: no complications Other Procedures Procedure(s): Because patient became more somnolent and unable to control airway he was prepped for oral tracheal ovation. Patient was intubated by RSI technique. Patient was preoxygenated with oxygen by nonrebreather mask. He received 20 mg of etomidate followed by 80 mg of rocuronium. He was intubated using a 7.5 Lithuanian endotracheal tube with glide scope. Of note patient did aspirate. There was appropriate color change on capnometer. He is 28 cm at the gum. Will obtain x-ray of the chest and abdomen to confirm placement of OG and endotracheal tube. Critical Care Time Critical Care Time: Yes Critical care time (excluding procedures): 30-74 minutes (41), Including time spent: (History, physical, documentation, spoke with EMS, review of records that were available,), Discussing w/Patient &/or Family/Building Tech (Spoke with and family and triage room to explain results and reason for transfer), Discussing w/Consultants (Pharmacist and [facility] stroke neurology), Arranging Admission or Transfer (Transfer center at [facility] and helicopter transfer to) and Performing Direct Patient Care at Bedside Discharge Plan Triage Chief Complaint: Stroke Alert ED Provider: Mamadou John Dx/Rx/DC Orders Clinical Impression: Localization-related (focal) (partial) idiopathic epilepsy and epileptic syndromes with seizures of localized onset, intractable, without status epilepticus, Aspiration into airway, Atrial fibrillation, Anticoagulant long- term use, Diabetes, Stroke-like symptoms Prescriptions: No Action potassium chloride 20 mEq tablet,ER particles/crystals 20 meq PO BID 7 Days Qty: 14 0RF Primary Care Provider: [facility] Referrals: [facility] [Primary Care Provider, None] Print Language: Romanian Disposition Disposition: Acute Care Hospital Discharge Location: [facility] NIHSS NIHSS 1a. Level of Consciousness: 1 - Not alert; Arousable by minor stimuli to obey, answer & respond 1b. LOC Questions: 0 - Answers BOTH questions correctly 2. Best Gaze: 0 - Normal 3. Visual: 0 - No visual loss 4. Facial Palsy: 1 - Minor paralysis (flattened nasolabial fold, asymmetry on smiling) 5a. Left Arm: 1 - Drift; arm drifts downward but doesn?t hit the bed 5b. Right Arm: 0 - No drift; arm holds 90 (or 45) degrees for full 10 seconds 6a. Left Le - Some effort against gravity; 6b. Right Le - No drift; leg holds 30-degree position for full 5 seconds 7. Limb Ataxia: 0 - Absent 8. Sensory: 1 - Lwac-[id number]-[id number] sensory loss; 9. Best Language: 0 - No aphasia; normal 10. Dysarthria: 1 = [id number] dysarthria; Total: 7 Stroke Questions Stroke Team Activated: Yes Reviewed Inclusion/Exclusion criteria: Yes IV Thrombolytic Administered: No (Patient is on apixaban which excludes lytics)
[2024-12-02] MEDS: LEVETIRACETAM IV (17:42)
[2024-12-02] MEDS: NORMAL SALINE 0.9% IV (17:42)
[2024-12-02 17:53] LABS: Hematocrit 37.1 % (40-54); Hemoglobin 12.4 g/dL (13.0-16.5); Immature Granulocytes Count 0.060 X10^3/uL (0.0-0.0); Mean Corp Hgb Conc 33.4 g/dL (32-36); Mean Corpuscular Volume 92.3 fL (80-94); Mean Platelet Vol. 10.9 fl (6.2-12.0); NRBC Flagged by Analyzer 0 % (0-5); POSITIVE COUNT YES; Platelet Count 96 K/mm3 (150-450); RBC Distribution Width CV 14.4 % (11.6-14.6); RBC Distribution Width SD 49.2 fl (35.1-43.9); Red Blood Count 4.02 M/mm3 (4.6-6.2); White Blood Count 8.3 K/mm3 (4.4-11.0)
[2024-12-02 18:08] LABS: Prothrombin Time (Protime)PT. 16.6 SECONDS (11.7-14.9)
[2024-12-02 18:09] LABS: Partial Thromboplast Time 36.8 Seconds (24.1-36.2)
--- NOTE | 2024-12-02 18:13 | RAD_ITS ---
PROCEDURE: CHEST 1 VIEW (PORTABLE) 12/02/2024 REASON FOR EXAM: INTUBATION TECHNIQUE: Frontal view of the chest. COMPARISON: Chest x-ray 04/30/2024. FINDINGS: Hardware: The NG tube terminates in the distal esophagus and it may be advanced. The ET tube terminates 3 cm above the lee. Heart: No cardiomegaly. Aortic valve prosthesis. Tortuosity of the aorta. Lungs: Perihilar airspace opacities may represent pulmonary edema. The right costophrenic angle is cut of the image. No large pleural effusion or pneumothorax. Bones: No acute bony abnormalities. RAD/Chest 1 View (Portable) IMPRESSION: The NG tube terminates in the distal esophagus and it may be advanced. The ET tube terminates 3 cm above the lee. Perihilar airspace opacities may represent pulmonary edema. Reading Location: [id number]
[2024-12-02] MEDS: Propofol 10MG/Ml 1,000 MG/100 ML Bottle 6.8 MG CONT INF (18:24)
[2024-12-02 18:25] LABS: Allen Test Positive; Base Excess -4 mmol/L (-2 to +2); FI02 100.0; PEEP 5; PO2 469 mmHG (75-100); RR 14; SITE L Radial; SO2 100 % (95-99)
--- NOTE | 2024-12-02 18:25 | ED.RN ---
this Rn asked dr kumar what a goal BP is for patient, he is currently 176/132, dr kumar stated to start propofol drip first to see if that helps pressure
[2024-12-02 18:28] LABS: Anion Gap 14 (5-15); BUN 20 mg/dL (4-19); BUN/Creat Ratio 18.2 RATIO (10-20); Calcium,Total 8.8 mg/dL (7.6-11.0); Carbon Dioxide 19.4 mmol/L (21.0-32.0); Chloride 102 mmol/L (98-108); Estimated Creatinine Clearance 71.74 ml/min (50-250); Glucose 141 mg/dL (70-99); Potassium 4.2 mmol/L (3.3-5.1); Troponin T High Sensitivity 14 ng/L (<=22)
--- NOTE | 2024-12-02 18:36 | CPS ---
Critical ABG values Dr. Alvaro huggins.
[2024-12-02] MEDS: fentaNYL drip 100 ML 2.5 MCG CONT INF (18:44)
--- NOTE | 2024-12-02 19:15 | ED.RN ---
pt spontaneously moving all 4 extremities
== END 2024-12-02 19:30 | disposition short-term general hospital (02) ==
PROVIDERS: Emergency Provider Emergency Medicine; Visit Provider Emergency Medicine
DX: G40.109 Localization-related (focal) (partial) symptomatic epilepsy and epileptic syndromes with simple partial seizures, not intractable, without status epilepticus (principal); I48.91 Unspecified atrial fibrillation; E11.40 Type 2 diabetes mellitus with diabetic neuropathy, unspecified; I25.10 Atherosclerotic heart disease of native coronary artery without angina pectoris; Z87.891 Personal history of nicotine dependence; Z79.01 Long term (current) use of anticoagulants; Z95.5 Presence of coronary angioplasty implant and graft
CPT/HCPCS: 31500; 31720; 36600; 51702; 70450; 70496; 70498; 71045; 80048; 82803; 84484; 85025; 85610; 85730; 93005; 94002; 96374; 99252; 99285; Q9967; G0463

== ENCOUNTER → 2024-12-21 | Outpatient (CLI) | payer OTHER, SELFPAY ==
--- NOTE | 2024-12-21 14:37 | MRI_ITS ---
PROCEDURE: BRAIN W/WO CONTRAST 12/21/2024 REASON FOR EXAM: SVA VERSUS MASS TECHNIQUE: Procedure Code: [id number] Modality: MR Procedure: BRAIN W/WO CONTRAST Multiplanar and multisequence images were obtained. CONTRAST: VOLUME: mL COMPARISON: CTs dated 12/02/2024 and 10/11/2020. CTA dated 12/02/2024. FINDINGS: Increased CSF spacing anterior to and with effacement of the medulla oblongata, likely representing an arachnoid cyst. There is also increased spacing in the midline of the posterior fossa, which could represent a tyler cisterna magna or also an arachnoid cyst. Mild generalized atrophy. Moderate confluent and focal FLAIR hyperintensities throughout the bilateral cerebral white matter, nonspecific and likely representing chronic microvascular ischemic changes. No corresponding enhancement. Focal encephalomalacia in the left parieto-occipital region, likely representing an old infarction. 2 foci of enhancement are noted in the cortical/subcortical region of the posterior right frontal lobe, measuring approximately 10 mm and 15 mm in their greatest dimension, with corresponding FLAIR hyperintensity. The midline structures are intact, including the corpus callosum, septum pellucidum, pituitary gland, and cerebellar vermis. Evidence of bilateral cataract surgery. The paranasal sinuses and mastoid air cells are clear. Diffusion-weighted images demonstrate no acute process. MRI/Brain W/WO Contrast IMPRESSION: 1. 2 foci of enhancement in the cortical/subcortical region of the posterior r ight frontal lobe, with corresponding FLAIR hyperintensity, as described above. There is no appreciable vasogenic edema or mass effect, therefore a neoplastic process is felt to be less likely.. No corresponding CT abnormality, including no appreci able enhancement on recent CTA. In the setting of recent ischemia, this could represent luxury perfusion (post ischemic hyperperf usion), however there is no evidence of acute or subacute ischemia on the diffusion-weighted sequence. Consider a short interva l follow-up MRI in 3-6 months to evaluate for stability. 2. Moderate nonspecific, nonenhancing FLAIR hyperintensities throughout the bi lateral cerebral white matter, likely representing chronic microvascular ischemic changes. 3. Mild generalized atrophy. 4. 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 5. Increased CSF spacing anterior to and with effacement of the medulla oblong kenan, likely representing an arachnoid cyst. Arachnoid cyst versus tyler cisterna magna in the midline of the posterior fossa . Reading Location: [id number]
== END | disposition home or self-care (01) ==
LOC: MRI 14:34
DX: R29.818 Other symptoms and signs involving the nervous system (principal)
CPT/HCPCS: 70553; A9575